=== PATIENT | male | born 1960 | race Caucasian/White ===

== ENCOUNTER 2017-08-26 11:49 | Inpatient (IN) | payer OTHER ==
[2017-08-26] MEDS: SOD CHLORIDE 0.9% 1,000 ML IV ×3 (12:18→14:21)
[2017-08-26] MEDS: HYDROmorphONE 0.5 MG/0.5 ML SYG IV ×2 (12:18→14:23)
[2017-08-26] MEDS: ONDANSETRON 4 MG INJ IV (12:18)
[2017-08-26 12:23] LABS: ADD MAN DIFF? NO
[2017-08-26 12:42] LABS: ALANINE AMINOTRANSFERASE 45 IU/L (13-69); ALBUMIN 3.8 g/dl (3.3-4.9); ALBUMIN/GLOBULIN RATIO 1.15; ALKALINE PHOSPHATASE 113 IU/L (42-121); ANION GAP 20 (8-16); ASPARTATE AMINO TRANSFERASE 47 IU/L (15-46); BILIRUBIN,INDIRECT 1.4 mg/dl (0-1.1); BILIRUBIN,TOTAL 1.4 mg/dl (0.2-1.3); BLOOD UREA NITROGEN 19 mg/dl (7-20); CARBON DIOXIDE 20 mmol/L (21-31); CHLORIDE 99 mmol/L (97-110); CREATININE 0.85 mg/dl (0.61-1.24); LIPASE 93 U/L (23-300); POTASSIUM 3.6 mmol/L (3.5-5.1); SODIUM 135 mmol/L (135-144); TOTAL PROTEIN 7.1 g/dl (6.1-8.1)
[2017-08-26 12:43] LABS: BASOPHILS % 0.1 % (0.0-2.0); HEMATOCRIT 43.1 % (42.0-52.0); HEMOGLOBIN 15.5 g/dl (14.0-18.0); LYMPHOCYTES # 1.6 10^3/ul (0.8-2.9); MEAN CORPUSCULAR HEMOGLOBIN 27.9 pg (29.0-33.0); MEAN CORPUSCULAR VOLUME 77.5 fl (82.0-101.0); MONOCYTE # 0.8 10^3/ul (0.3-0.9); MONOCYTES % 5.9 % (0.0-11.0); NEUTROPHIL # 11.7 10^3/ul (1.6-7.5); NEUTROPHILS % 82.3 % (39.0-77.0); PLATELET COUNT 214 10^3/UL (140-415); RED BLOOD COUNT 5.56 10^6/ul (4.70-6.10)
[2017-08-26 12:43] LABS: WHITE BLOOD COUNT 14.2 10^3/ul (4.8-10.8)
[2017-08-26 12:45] LABS: GLUCOSE 413 mg/dl (70-220)
[2017-08-26 12:57] LABS: TROPONIN-I < 0.012 ng/ml (0.00-0.12)
[2017-08-26 13:19] LABS: MODE NASAL CANNULA; MetHgb Venous 0.3 %; Sample Type Blood venous; Site VENOUS LINE; Venous COHb 1.4 %; Venous Fraction OxyHgb 79.1 %; Venous Oxygen Sat 80.5 mmHG (55.0-75.0); Venous Total Hemglobin 15.2 g/dl
[2017-08-26] MEDS ORDERED: GLUCOSE GEL 15 GRAM TUBE BUCCAL (13:30)
[2017-08-26] MEDS ORDERED: DEXTROSE 50% 50 ML SYRINGE IV (13:30)
[2017-08-26] MEDS ORDERED: GLUCOSE GEL 15 GRAM TUBE PO ×2 (13:30)
[2017-08-26] MEDS ORDERED: GLUCAGON 1 MG INJ IM (13:30)
[2017-08-26] MEDS ORDERED: ONDANSETRON 4 MG INJ IV ×2 (14:00→16:30)
[2017-08-26] MEDS ORDERED: ACETAMINOPHEN 325 MG TAB PO (14:00)
[2017-08-26 14:07] LABS: LACTIC ACID 1.4 mmol/L (0.5-2.0)
[2017-08-26] MEDS: INSULIN LISPRO 100 UNIT/ML VIAL SC (14:16)
[2017-08-26] MEDS: PIPER-TAZO 3.375 GM IV (PMX) 100 ML IVPB ×2 (14:22→17:59)
[2017-08-26 15:45] LABS: LACTIC ACID 1.3 mmol/L (0.5-2.0)
[2017-08-26] MEDS ORDERED: DOCUSATE SODIUM 100 MG CAP PO (16:30)
[2017-08-26] MEDS ORDERED: NACL 0.9% 3 ML SYG IV (16:30)
[2017-08-26] MEDS ORDERED: morphine 2 MG INJ IV (16:30)
[2017-08-26] MEDS ORDERED: ZOLPIDEM 5 MG TAB PO (16:30)
[2017-08-26] MEDS: morphine LIQ (10 MG/5 ML) CUP PO ×2 (17:00→21:23)
[2017-08-26] MEDS: NS + KCL 20 MEQ 1,000 ML IV (17:02)
[2017-08-26 17:38] LABS: LACTIC ACID 2.3 mmol/L (0.5-2.0)
[2017-08-26] MEDS: INSULIN ASPART [NOVOLOG] 3 ML PEN SC ×2 (17:58→20:14)
[2017-08-26] MEDS: INSULIN GLARGINE [LANtus] 3 ML PEN SC (20:13)
[2017-08-27] MEDS: PIPER-TAZO 3.375 GM IV (PMX) 100 ML IVPB ×5 (01:15→23:30)
[2017-08-27] MEDS: INSULIN ASPART [NOVOLOG] 3 ML PEN SC ×6 (01:25→20:37)
[2017-08-27] MEDS: ACCU-CHEK XX (02:00)
[2017-08-27] MEDS: NS + KCL 20 MEQ 1,000 ML IV ×3 (03:44→21:59)
[2017-08-27 06:07] LABS: ADD MAN DIFF? NO
[2017-08-27 06:19] LABS: WHITE BLOOD COUNT 8.3 10^3/ul (4.8-10.8)
[2017-08-27 06:19] LABS: BASOPHILS % 0.1 % (0.0-2.0); EOSINOPHILS % 0.2 % (0.0-7.0); HEMATOCRIT 37.9 % (42.0-52.0); LYMPHOCYTES # 0.8 10^3/ul (0.8-2.9); LYMPHOCYTES % 9.4 % (15.0-51.0); MEAN CORPUSCULAR HEMOGLOBIN 27.7 pg (29.0-33.0); MEAN CORPUSCULAR HGB CONC 34.3 g/dl (32.0-37.0); MEAN CORPUSCULAR VOLUME 80.6 fl (82.0-101.0); MEAN PLATELET VOLUME 11.4 fl (7.4-10.4); MONOCYTE # 0.8 10^3/ul (0.3-0.9); MONOCYTES % 9.3 % (0.0-11.0); NEUTROPHIL # 6.7 10^3/ul (1.6-7.5); NEUTROPHILS % 80.5 % (39.0-77.0); PLATELET COUNT 185 10^3/UL (140-415); RED CELL DISTRIBUTION WIDTH 13.2 % (11.5-14.5)
[2017-08-27 06:39] LABS: HEMOGLOBIN A1C 11.2 % (0-5.9)
[2017-08-27 06:40] LABS: ALBUMIN/GLOBULIN RATIO 1.11; ALKALINE PHOSPHATASE 104 IU/L (42-121); ANION GAP 11 (8-16); ASPARTATE AMINO TRANSFERASE 110 IU/L (15-46); BILIRUBIN,INDIRECT 0.7 mg/dl (0-1.1); BILIRUBIN,TOTAL 0.7 mg/dl (0.2-1.3); BLOOD UREA NITROGEN 22 mg/dl (7-20); CALCIUM 7.9 mg/dl (8.4-10.2); CARBON DIOXIDE 27 mmol/L (21-31); CHLORIDE 108 mmol/L (97-110); CHOLESTEROL 144 mg/dl (100-200); CREATININE 0.97 mg/dl (0.61-1.24); GLUCOSE 216 mg/dl (70-220); HDL CHOLESTEROL 36 mg/dl (28-71); LDL CHOLESTEROL,CALCULATED 82 mg/dl; PHOSPHORUS 2.8 mg/dl (2.5-4.9); POTASSIUM 3.4 mmol/L (3.5-5.1); SODIUM 143 mmol/L (135-144); TOTAL PROTEIN 5.7 g/dl (6.1-8.1); TRIGLYCERIDES 128 mg/dl (0-149)
[2017-08-27 06:41] LABS: ALANINE AMINOTRANSFERASE 99 IU/L (13-69)
[2017-08-27] MEDS: morphine LIQ (10 MG/5 ML) CUP PO ×4 (08:30→21:57)
[2017-08-27] MEDS: INSULIN GLARGINE [LANtus] 3 ML PEN SC (20:38)
[2017-08-28] MEDS: INSULIN ASPART [NOVOLOG] 3 ML PEN SC ×6 (01:27→20:45)
[2017-08-28] MEDS: ACCU-CHEK XX (01:29)
[2017-08-28] MEDS: morphine LIQ (10 MG/5 ML) CUP PO ×5 (01:48→22:05)
[2017-08-28] MEDS: NS + KCL 20 MEQ 1,000 ML IV ×2 (05:16→08:30)
[2017-08-28] MEDS: PIPER-TAZO 3.375 GM IV (PMX) 100 ML IVPB ×4 (05:26→23:49)
[2017-08-28 06:11] LABS: ADD MAN DIFF? NO; HAAIG REFLEX REFLEX FILED
[2017-08-28 06:19] LABS: WHITE BLOOD COUNT 6.5 10^3/ul (4.8-10.8)
[2017-08-28 06:19] LABS: BASOPHILS % 0.2 % (0.0-2.0); EOSINOPHILS # 0.1 10^3/ul (0.0-0.5); EOSINOPHILS % 1.5 % (0.0-7.0); HEMATOCRIT 37.2 % (42.0-52.0); HEMOGLOBIN 12.7 g/dl (14.0-18.0); LYMPHOCYTES % 14.7 % (15.0-51.0); MEAN CORPUSCULAR HEMOGLOBIN 28.2 pg (29.0-33.0); MEAN CORPUSCULAR HGB CONC 34.1 g/dl (32.0-37.0); MEAN CORPUSCULAR VOLUME 82.5 fl (82.0-101.0); MEAN PLATELET VOLUME 11.4 fl (7.4-10.4); MONOCYTE # 0.5 10^3/ul (0.3-0.9); MONOCYTES % 7.7 % (0.0-11.0); NEUTROPHIL # 4.9 10^3/ul (1.6-7.5); NEUTROPHILS % 75.6 % (39.0-77.0); PLATELET COUNT 179 10^3/UL (140-415); RED BLOOD COUNT 4.51 10^6/ul (4.70-6.10); RED CELL DISTRIBUTION WIDTH 13.5 % (11.5-14.5)
[2017-08-28 06:57] LABS: ALANINE AMINOTRANSFERASE 112 IU/L (13-69); ALBUMIN 2.7 g/dl (3.3-4.9); ALBUMIN/GLOBULIN RATIO 0.96; ALKALINE PHOSPHATASE 149 IU/L (42-121); ANION GAP 9 (8-16); ASPARTATE AMINO TRANSFERASE 62 IU/L (15-46); BILIRUBIN,INDIRECT 0.3 mg/dl (0-1.1); BILIRUBIN,TOTAL 0.3 mg/dl (0.2-1.3); BLOOD UREA NITROGEN 20 mg/dl (7-20); CALCIUM 7.7 mg/dl (8.4-10.2); CARBON DIOXIDE 26 mmol/L (21-31); CHLORIDE 112 mmol/L (97-110); GLUCOSE 155 mg/dl (70-220); POTASSIUM 3.3 mmol/L (3.5-5.1); SODIUM 144 mmol/L (135-144); TOTAL PROTEIN 5.5 g/dl (6.1-8.1)
[2017-08-28 08:52] LABS: HEPATITIS B SURFACE ANTIGEN NEGATIVE (NEGATIVE)
[2017-08-28 09:10] LABS: HEPATITIS B CORE ANTIBODY REACTIVE (NEGATIVE); HEPATITIS C VIRAL ANTIBODY NEGATIVE (NEGATIVE)
[2017-08-28] MEDS: POTASSIUM CHLORIDE 40 MEQ in SOD CHLORIDE 0.45% 1,000 ML IV (15:07)
[2017-08-28] MEDS: INSULIN GLARGINE [LANtus] 3 ML PEN SC (20:49)
[2017-08-29] MEDS: INSULIN ASPART [NOVOLOG] 3 ML PEN SC ×6 (00:56→20:06)
[2017-08-29] MEDS: ACCU-CHEK XX ×2 (00:56→19:39)
[2017-08-29] MEDS: POTASSIUM CHLORIDE 40 MEQ in SOD CHLORIDE 0.45% 1,000 ML IV ×4 (01:12→17:55)
[2017-08-29] MEDS: morphine LIQ (10 MG/5 ML) CUP PO ×5 (04:46→22:18)
[2017-08-29] MEDS: PIPER-TAZO 3.375 GM IV (PMX) 100 ML IVPB ×3 (05:38→17:12)
[2017-08-29 06:08] LABS: ADD MAN DIFF? NO
[2017-08-29 06:15] LABS: BASOPHILS % 0.3 % (0.0-2.0); EOSINOPHILS # 0.2 10^3/ul (0.0-0.5); EOSINOPHILS % 2.3 % (0.0-7.0); HEMATOCRIT 40.1 % (42.0-52.0); HEMOGLOBIN 13.5 g/dl (14.0-18.0); LYMPHOCYTES # 1.4 10^3/ul (0.8-2.9); LYMPHOCYTES % 19.3 % (15.0-51.0); MEAN CORPUSCULAR HEMOGLOBIN 27.7 pg (29.0-33.0); MEAN CORPUSCULAR HGB CONC 33.7 g/dl (32.0-37.0); MEAN CORPUSCULAR VOLUME 82.2 fl (82.0-101.0); MEAN PLATELET VOLUME 10.9 fl (7.4-10.4); MONOCYTE # 0.6 10^3/ul (0.3-0.9); MONOCYTES % 7.6 % (0.0-11.0); NEUTROPHIL # 5.1 10^3/ul (1.6-7.5); PLATELET COUNT 212 10^3/UL (140-415); RED BLOOD COUNT 4.88 10^6/ul (4.70-6.10); RED CELL DISTRIBUTION WIDTH 13.6 % (11.5-14.5)
[2017-08-29 06:15] LABS: WHITE BLOOD COUNT 7.3 10^3/ul (4.8-10.8)
[2017-08-29 06:35] LABS: ALANINE AMINOTRANSFERASE 83 IU/L (13-69); ALBUMIN/GLOBULIN RATIO 0.96; ALKALINE PHOSPHATASE 192 IU/L (42-121); ANION GAP 12 (8-16); ASPARTATE AMINO TRANSFERASE 25 IU/L (15-46); BILIRUBIN,INDIRECT 0.4 mg/dl (0-1.1); BILIRUBIN,TOTAL 0.4 mg/dl (0.2-1.3); BLOOD UREA NITROGEN 16 mg/dl (7-20); CALCIUM 7.8 mg/dl (8.4-10.2); CARBON DIOXIDE 28 mmol/L (21-31); CHLORIDE 110 mmol/L (97-110); CREATININE 0.79 mg/dl (0.61-1.24); GLUCOSE 105 mg/dl (70-220); MAGNESIUM 2.1 mg/dl (1.7-2.5); POTASSIUM 3.3 mmol/L (3.5-5.1); SODIUM 147 mmol/L (135-144); TOTAL PROTEIN 6.1 g/dl (6.1-8.1)
[2017-08-29] MEDS: HYDROCODONE/APAP (5/325) TAB PO (20:03)
[2017-08-29] MEDS: INSULIN GLARGINE [LANtus] 3 ML PEN SC (20:06)
[2017-08-30] MEDS: PIPER-TAZO 3.375 GM IV (PMX) 100 ML IVPB ×4 (00:38→18:00)
[2017-08-30] MEDS: DEXTROSE 50% 50 ML SYRINGE IV ×2 (00:40→06:17)
[2017-08-30] MEDS: INSULIN ASPART [NOVOLOG] 3 ML PEN SC ×6 (00:46→20:50)
[2017-08-30] MEDS: morphine LIQ (10 MG/5 ML) CUP PO ×3 (02:07→20:46)
[2017-08-30] MEDS: HYDROCODONE/APAP (5/325) TAB PO ×2 (03:09→20:47)
[2017-08-30 06:01] LABS: ADD MAN DIFF? NO
[2017-08-30 06:06] LABS: WHITE BLOOD COUNT 5.6 10^3/ul (4.8-10.8)
[2017-08-30 06:06] LABS: BASOPHILS % 0.4 % (0.0-2.0); EOSINOPHILS # 0.3 10^3/ul (0.0-0.5); EOSINOPHILS % 4.6 % (0.0-7.0); HEMATOCRIT 35.8 % (42.0-52.0); HEMOGLOBIN 12.5 g/dl (14.0-18.0); LYMPHOCYTES # 1.4 10^3/ul (0.8-2.9); MEAN CORPUSCULAR HEMOGLOBIN 28.5 pg (29.0-33.0); MEAN CORPUSCULAR HGB CONC 34.9 g/dl (32.0-37.0); MEAN CORPUSCULAR VOLUME 81.5 fl (82.0-101.0); MEAN PLATELET VOLUME 10.3 fl (7.4-10.4); MONOCYTE # 0.5 10^3/ul (0.3-0.9); MONOCYTES % 8.9 % (0.0-11.0); NEUTROPHIL # 3.5 10^3/ul (1.6-7.5); NEUTROPHILS % 61.7 % (39.0-77.0); PLATELET COUNT 219 10^3/UL (140-415); RED BLOOD COUNT 4.39 10^6/ul (4.70-6.10); RED CELL DISTRIBUTION WIDTH 13.4 % (11.5-14.5)
[2017-08-30] MEDS: POTASSIUM CHLORIDE 40 MEQ in SOD CHLORIDE 0.45% 1,000 ML IV (06:17)
[2017-08-30 06:39] LABS: MAGNESIUM 1.9 mg/dl (1.7-2.5)
[2017-08-30 06:45] LABS: ALANINE AMINOTRANSFERASE 56 IU/L (13-69); ALBUMIN 2.5 g/dl (3.3-4.9); ALKALINE PHOSPHATASE 163 IU/L (42-121); ANION GAP 12 (8-16); ASPARTATE AMINO TRANSFERASE 22 IU/L (15-46); BILIRUBIN,INDIRECT 0.4 mg/dl (0-1.1); BILIRUBIN,TOTAL 0.4 mg/dl (0.2-1.3); BLOOD UREA NITROGEN 12 mg/dl (7-20); CALCIUM 7.8 mg/dl (8.4-10.2); CARBON DIOXIDE 26 mmol/L (21-31); CHLORIDE 109 mmol/L (97-110); CREATININE 0.77 mg/dl (0.61-1.24); GLUCOSE 65 mg/dl (70-220); POTASSIUM 3.6 mmol/L (3.5-5.1); SODIUM 143 mmol/L (135-144); TOTAL PROTEIN 5.6 g/dl (6.1-8.1)
[2017-08-30 11:01] LABS: ALANINE AMINOTRANSFERASE 57 IU/L (13-69); ALBUMIN 2.6 g/dl (3.3-4.9); ALKALINE PHOSPHATASE 161 IU/L (42-121); ASPARTATE AMINO TRANSFERASE 24 IU/L (15-46); BILIRUBIN,INDIRECT 0.3 mg/dl (0-1.1); BILIRUBIN,TOTAL 0.3 mg/dl (0.2-1.3); LIPASE 96 U/L (23-300); TOTAL PROTEIN 5.4 g/dl (6.1-8.1)
[2017-08-30] MEDS: ACETAMINOPHEN 325 MG TAB PO (11:44)
[2017-08-30 11:46] LABS: AMYLASE 49 U/L (11-123)
[2017-08-30] MEDS: D5W + KCL 20 MEQ 1,000 ML IV ×2 (13:13→20:46)
[2017-08-30] MEDS ORDERED: GLYCOPYRROLATE 0.4 MG INJ (17:06)
[2017-08-30] MEDS ORDERED: FENTAnyl 50 MCG/ML VIAL (17:06)
[2017-08-30] MEDS ORDERED: ROCURONIUM 50 MG INJ (17:06)
[2017-08-30] MEDS ORDERED: DEXAMETHASONE 4 MG/ML 1 ML INJ (17:06)
[2017-08-30] MEDS ORDERED: PROPOFOL 20 ML (17:06)
[2017-08-30] MEDS ORDERED: NEOSTIGMINE 3 MG/3 ML SYRINGE (17:06)
[2017-08-30] MEDS ORDERED: CEFAZOLIN 1 GM INJ (17:06)
[2017-08-30] MEDS ORDERED: ONDANSETRON 4 MG INJ (17:06)
[2017-08-30] MEDS: LIDOCAINE 1%/EPI 30 ML INJ (17:30)
[2017-08-30] MEDS: BUPIVACAINE 0.25% (MPF) 30 ML INJ (17:30)
[2017-08-30] MEDS ORDERED: hydrALAzine 20 MG INJ IV (18:00)
[2017-08-30] MEDS ORDERED: MIDAZOLAM 1 MG/ML 2 ML INJ IV (18:00)
[2017-08-30] MEDS ORDERED: MEPERIDINE 25 MG INJ IV (18:00)
[2017-08-30] MEDS ORDERED: HYDROmorphONE (0.2 MG/ML) 10ML SYG IV ×2 (18:00)
[2017-08-30] MEDS ORDERED: EPHEDrine SULFATE 50 MG/5 ML SYG IV (18:00)
[2017-08-30] MEDS ORDERED: DIPHENHYDRAMINE 50 MG INJ IV (18:00)
[2017-08-30] MEDS ORDERED: IPRATROPIUM (NEB) 0.5 MG/2.5 ML AMP HHN (18:00)
[2017-08-30] MEDS ORDERED: FENTAnyl 50 MCG/ML VIAL IV ×3 (18:00)
[2017-08-30] MEDS ORDERED: ALBUTEROL 0.083% (NEB) 2.5 MG/3 ML AMP HHN (18:00)
[2017-08-30] MEDS ORDERED: OXYCODONE/ACETAMINOPHEN (5/325) TAB PO ×2 (18:00)
[2017-08-30] MEDS ORDERED: TRIMETHOBENZAMIDE 100 MG/ML VIAL IM (18:00)
[2017-08-30] MEDS ORDERED: KETOROLAC 30 MG INJ (18:21)
[2017-08-30] MEDS: HYDROmorphONE (0.2 MG/ML) 10ML SYG IV ×2 (19:01→19:09)
[2017-08-30] MEDS: ONDANSETRON 4 MG INJ IV (19:02)
[2017-08-30] MEDS: LABETALOL HCL 20MG INJ IV ×2 (19:15→19:30)
[2017-08-30] MEDS: hydrALAzine 20 MG INJ IV (20:47)
[2017-08-30] MEDS: INSULIN GLARGINE [LANtus] 3 ML PEN SC (21:01)
[2017-08-31] MEDS: PIPER-TAZO 3.375 GM IV (PMX) 100 ML IVPB ×3 (00:34→12:18)
[2017-08-31] MEDS: ACCU-CHEK XX (02:00)
[2017-08-31] MEDS: morphine LIQ (10 MG/5 ML) CUP PO ×2 (02:05→10:01)
[2017-08-31] MEDS: D5W + KCL 20 MEQ 1,000 ML IV (06:18)
[2017-08-31] MEDS: HYDROCODONE/APAP (5/325) TAB PO (06:19)
[2017-08-31] MEDS: INSULIN ASPART [NOVOLOG] 3 ML PEN SC ×2 (08:11→12:19)
== END 2017-08-31 16:25 | disposition home or self-care (01) | DRG 854 ==
LOC: E/R 11:49 → MS2 13:39
PROC: 0FT44ZZ Resection of Gallbladder, Percutaneous Endoscopic Approach (ICD-10-PCS; principal; 2017-08-30 15:00)
PROC: 0FB04ZX Excision of Liver, Percutaneous Endoscopic Approach, Diagnostic (ICD-10-PCS; 2017-08-30 15:00)
DX: A41.9 Sepsis, unspecified organism (principal); K80.00 Calculus of gallbladder with acute cholecystitis without obstruction; E11.65 Type 2 diabetes mellitus with hyperglycemia; E66.9 Obesity, unspecified; Z68.31 Body mass index [BMI] 31.0-31.9, adult; G89.29 Other chronic pain; I10 Essential (primary) hypertension
CPT/HCPCS: 36415; 71045; 74176; 74181; 76705; 80053; 80061; 80076; 82150; 82803; 82962; 83036; 83605; 83690; 83735; 84100; 84484; 85025; 86704; 86709; 86803; 87040; 87045; 87075; 87340; 88304; 88307; 88313; 93005; 96365; 96372; 96375; 96376; 99291-25

== ENCOUNTER 2017-09-06 14:26 | Outpatient (CLI) | payer OTHER | END 2017-09-06 16:02 | disposition home or self-care (01) | LOC: DCC 14:26 | DX: Z09 Encounter for follow-up examination after completed treatment for conditions other than malignant neoplasm (principal); R10.9 Unspecified abdominal pain; E11.8 Type 2 diabetes mellitus with unspecified complications; Z79.84 Long term (current) use of oral hypoglycemic drugs | CPT/HCPCS: G0463 ==

== ENCOUNTER 2017-09-15 07:34 | Inpatient (IN) | payer OTHER ==
[2017-09-15 09:33] LABS: ADD MAN DIFF? NO
[2017-09-15] MEDS: SOD CHLORIDE 0.9% 1,000 ML IV ×3 (09:33→23:24)
[2017-09-15] MEDS: PIPER-TAZO 3.375 GM IV (PMX) 100 ML IVPB ×3 (09:33→21:39)
[2017-09-15] MEDS: IBUPROFEN 600 MG TAB PO (09:33)
[2017-09-15] MEDS: morphine 4 MG/ML VIAL IV (09:33)
[2017-09-15] MEDS: ONDANSETRON 4 MG INJ IV (09:33)
[2017-09-15 09:38] LABS: BASOPHILS % 0.2 % (0.0-2.0); EOSINOPHILS # 0.2 10^3/ul (0.0-0.5); EOSINOPHILS % 2.1 % (0.0-7.0); HEMATOCRIT 34.1 % (42.0-52.0); HEMOGLOBIN 11.7 g/dl (14.0-18.0); LYMPHOCYTES # 1.2 10^3/ul (0.8-2.9); LYMPHOCYTES % 14.1 % (15.0-51.0); MEAN CORPUSCULAR HEMOGLOBIN 28.1 pg (29.0-33.0); MEAN CORPUSCULAR HGB CONC 34.3 g/dl (32.0-37.0); MEAN PLATELET VOLUME 10.4 fl (7.4-10.4); MONOCYTE # 0.6 10^3/ul (0.3-0.9); NEUTROPHIL # 6.5 10^3/ul (1.6-7.5); NEUTROPHILS % 75.7 % (39.0-77.0); PLATELET COUNT 341 10^3/UL (140-415); RED BLOOD COUNT 4.16 10^6/ul (4.70-6.10); RED CELL DISTRIBUTION WIDTH 12.4 % (11.5-14.5)
[2017-09-15 09:38] LABS: WHITE BLOOD COUNT 8.5 10^3/ul (4.8-10.8)
[2017-09-15 09:54] LABS: INR 1.01; PROTIME 13.4 Sec (11.9-14.9)
[2017-09-15 09:55] LABS: PARTIAL THROMBOPLASTIN TIME 49.7 Sec (25.0-35.0)
[2017-09-15 10:02] LABS: ALANINE AMINOTRANSFERASE 72 IU/L (13-69); ALBUMIN 2.9 g/dl (3.3-4.9); ALBUMIN/GLOBULIN RATIO 0.93; ALKALINE PHOSPHATASE 386 IU/L (42-121); ANION GAP 18 (8-16); ASPARTATE AMINO TRANSFERASE 25 IU/L (15-46); BILIRUBIN,INDIRECT 0.3 mg/dl (0-1.1); BILIRUBIN,TOTAL 0.3 mg/dl (0.2-1.3); BLOOD UREA NITROGEN 11 mg/dl (7-20); CALCIUM 8.8 mg/dl (8.4-10.2); CARBON DIOXIDE 26 mmol/L (21-31); CHLORIDE 100 mmol/L (97-110); CREATININE 0.76 mg/dl (0.61-1.24); GLUCOSE 287 mg/dl (70-220); LIPASE 397 U/L (23-300); POTASSIUM 4.6 mmol/L (3.5-5.1); SODIUM 139 mmol/L (135-144)
[2017-09-15] MEDS: SOD CHLORIDE 0.9% 100 ML (10:44)
[2017-09-15] MEDS: IOHEXOL 300MG/ML 150 ML BTL (10:45)
[2017-09-15] MEDS ORDERED: DEXTROSE 50% 50 ML SYRINGE IV ×2 (13:30)
[2017-09-15] MEDS ORDERED: NACL 0.9% 3 ML SYG IV (13:30)
[2017-09-15] MEDS ORDERED: GLUCOSE GEL 15 GRAM TUBE BUCCAL (13:30)
[2017-09-15] MEDS ORDERED: GLUCAGON 1 MG INJ IM (13:30)
[2017-09-15] MEDS ORDERED: ACETAMINOPHEN 325 MG TAB PO (13:30)
[2017-09-15] MEDS ORDERED: GLUCOSE GEL 15 GRAM TUBE PO ×2 (13:30)
[2017-09-15] MEDS: INSULIN ASPART [NOVOLOG] 3 ML PEN SC ×2 (17:36→20:58)
[2017-09-15] MEDS: HYDROCODONE/APAP (5/325) TAB PO (19:13)
[2017-09-16] MEDS: morphine 2 MG INJ IV ×3 (00:31→23:13)
[2017-09-16] MEDS: PIPER-TAZO 3.375 GM IV (PMX) 100 ML IVPB ×3 (05:46→21:39)
[2017-09-16] MEDS: PANTOPRAZOLE 40 MG INJ IV (05:46)
[2017-09-16 06:06] LABS: ADD MAN DIFF? NO
[2017-09-16 06:10] LABS: BASOPHILS % 0.3 % (0.0-2.0); EOSINOPHILS # 0.3 10^3/ul (0.0-0.5); EOSINOPHILS % 4.7 % (0.0-7.0); HEMATOCRIT 29.1 % (42.0-52.0); HEMOGLOBIN 9.5 g/dl (14.0-18.0); LYMPHOCYTES # 1.2 10^3/ul (0.8-2.9); LYMPHOCYTES % 18.6 % (15.0-51.0); MEAN CORPUSCULAR HEMOGLOBIN 27.6 pg (29.0-33.0); MEAN CORPUSCULAR HGB CONC 32.6 g/dl (32.0-37.0); MEAN CORPUSCULAR VOLUME 84.6 fl (82.0-101.0); MEAN PLATELET VOLUME 10.6 fl (7.4-10.4); MONOCYTE # 0.6 10^3/ul (0.3-0.9); MONOCYTES % 8.5 % (0.0-11.0); NEUTROPHIL # 4.4 10^3/ul (1.6-7.5); NEUTROPHILS % 66.8 % (39.0-77.0); PLATELET COUNT 315 10^3/UL (140-415); RED BLOOD COUNT 3.44 10^6/ul (4.70-6.10); RED CELL DISTRIBUTION WIDTH 12.6 % (11.5-14.5)
[2017-09-16 06:10] LABS: WHITE BLOOD COUNT 6.6 10^3/ul (4.8-10.8)
[2017-09-16 06:44] LABS: ALANINE AMINOTRANSFERASE 63 IU/L (13-69); ALBUMIN 2.5 g/dl (3.3-4.9); ALKALINE PHOSPHATASE 311 IU/L (42-121); ANION GAP 12 (8-16); ASPARTATE AMINO TRANSFERASE 28 IU/L (15-46); BILIRUBIN,INDIRECT 0.1 mg/dl (0-1.1); BILIRUBIN,TOTAL 0.1 mg/dl (0.2-1.3); BLOOD UREA NITROGEN 11 mg/dl (7-20); CALCIUM 8.2 mg/dl (8.4-10.2); CARBON DIOXIDE 29 mmol/L (21-31); CHLORIDE 103 mmol/L (97-110); CREATININE 0.89 mg/dl (0.61-1.24); GLUCOSE 230 mg/dl (70-220); MAGNESIUM 1.9 mg/dl (1.7-2.5); POTASSIUM 4.7 mmol/L (3.5-5.1); SODIUM 139 mmol/L (135-144); TOTAL PROTEIN 5.6 g/dl (6.1-8.1)
[2017-09-16] MEDS: HYDROCODONE/APAP (5/325) TAB PO ×2 (07:55→17:35)
[2017-09-16] MEDS: INSULIN ASPART [NOVOLOG] 3 ML PEN SC ×4 (08:00→20:56)
[2017-09-16] MEDS: SOD CHLORIDE 0.9% 1,000 ML IV ×2 (10:11→21:39)
[2017-09-16 12:24] LABS: LIPASE 197 U/L (23-300)
[2017-09-16] MEDS ORDERED: VANCOMYCIN IV PER PHARMACY XX (14:30)
[2017-09-16] MEDS: VANCOMYCIN 2 GM in SOD CHLORIDE 0.9% 500 ML IVPB (16:07)
[2017-09-16] MEDS: hydrALAzine 20 MG INJ IV (20:20)
[2017-09-16] MEDS: ONDANSETRON 4 MG INJ IV (23:12)
[2017-09-17] MEDS: VANCOMYCIN 1.5 GM in SOD CHLORIDE 0.9% 250 ML IVPB (04:23)
[2017-09-17] MEDS: SOD CHLORIDE 0.9% 1,000 ML IV (05:38)
[2017-09-17] MEDS: PANTOPRAZOLE 40 MG INJ IV (05:40)
[2017-09-17] MEDS: PIPER-TAZO 3.375 GM IV (PMX) 100 ML IVPB (05:40)
[2017-09-17] MEDS: morphine 2 MG INJ IV ×2 (07:44→16:05)
[2017-09-17] MEDS: INSULIN ASPART [NOVOLOG] 3 ML PEN SC ×4 (07:51→21:00)
[2017-09-17] MEDS: HYDROCODONE/APAP (5/325) TAB PO ×2 (11:56→21:02)
[2017-09-17] MEDS: CEFTRIAXONE 1 GM/50 ML (PMX) 50 ML IVPB (11:58)
[2017-09-18] MEDS: HYDROCODONE/APAP (5/325) TAB PO ×2 (06:31→15:28)
[2017-09-18] MEDS: PANTOPRAZOLE 40 MG INJ IV (06:31)
[2017-09-18] MEDS: INSULIN ASPART [NOVOLOG] 3 ML PEN SC ×4 (08:43→21:00)
[2017-09-18] MEDS: CEFTRIAXONE 1 GM/50 ML (PMX) 50 ML IVPB (11:24)
[2017-09-18] MEDS: POLYETHYLENE GLYCOL 17 GM PACKET PO (12:09)
[2017-09-18] MEDS: DOCUSATE SODIUM 100 MG CAP PO ×2 (12:09→21:46)
[2017-09-18] MEDS: hydrALAzine 20 MG INJ IV (15:24)
[2017-09-19] MEDS: HYDROCODONE/APAP (5/325) TAB PO (03:51)
[2017-09-19] MEDS: PANTOPRAZOLE 40 MG INJ IV (05:40)
[2017-09-19] MEDS: INSULIN ASPART [NOVOLOG] 3 ML PEN SC ×4 (08:07→20:27)
[2017-09-19] MEDS: CEFTRIAXONE 1 GM/50 ML (PMX) 50 ML IVPB (11:52)
[2017-09-19] MEDS: hydrALAzine 20 MG INJ IV (20:28)
[2017-09-20] MEDS: PANTOPRAZOLE 40 MG INJ IV (05:29)
[2017-09-20] MEDS: INSULIN ASPART [NOVOLOG] 3 ML PEN SC ×4 (08:04→20:44)
[2017-09-20] MEDS: CEFTRIAXONE 2 GM/50 ML (PMX) 50 ML IVPB (12:29)
[2017-09-20] MEDS: AMLODIPINE 5 MG TAB PO ×2 (12:30→15:59)
[2017-09-20] MEDS: hydrALAzine 20 MG INJ IV (14:46)
[2017-09-20] MEDS: TRIMETHOPRIM/SULFAMETHOX (DS) TAB PO (20:40)
[2017-09-21] MEDS: INSULIN ASPART [NOVOLOG] 3 ML PEN SC ×4 (01:49→17:28)
[2017-09-21] MEDS: LEVOFLOXACIN 500 MG TAB PO (05:25)
[2017-09-21] MEDS: PANTOPRAZOLE (EC) 40 MG TAB PO (05:25)
[2017-09-21 05:43] LABS: ADD MAN DIFF? NO
[2017-09-21 05:48] LABS: WHITE BLOOD COUNT 5.5 10^3/ul (4.8-10.8)
[2017-09-21 05:48] LABS: BASOPHILS % 0.4 % (0.0-2.0); EOSINOPHILS # 0.2 10^3/ul (0.0-0.5); EOSINOPHILS % 4.2 % (0.0-7.0); HEMATOCRIT 31.4 % (42.0-52.0); HEMOGLOBIN 10.3 g/dl (14.0-18.0); LYMPHOCYTES # 1.4 10^3/ul (0.8-2.9); LYMPHOCYTES % 24.6 % (15.0-51.0); MEAN CORPUSCULAR HEMOGLOBIN 27.4 pg (29.0-33.0); MEAN CORPUSCULAR HGB CONC 32.8 g/dl (32.0-37.0); MEAN CORPUSCULAR VOLUME 83.5 fl (82.0-101.0); MEAN PLATELET VOLUME 9.7 fl (7.4-10.4); MONOCYTE # 0.5 10^3/ul (0.3-0.9); MONOCYTES % 8.6 % (0.0-11.0); NEUTROPHIL # 3.3 10^3/ul (1.6-7.5); NEUTROPHILS % 60.7 % (39.0-77.0); PLATELET COUNT 360 10^3/UL (140-415); RED BLOOD COUNT 3.76 10^6/ul (4.70-6.10); RED CELL DISTRIBUTION WIDTH 12.8 % (11.5-14.5)
[2017-09-21 06:18] LABS: ANION GAP 11 (8-16); BLOOD UREA NITROGEN 14 mg/dl (7-20); CALCIUM 8.8 mg/dl (8.4-10.2); CARBON DIOXIDE 30 mmol/L (21-31); CHLORIDE 105 mmol/L (97-110); CREATININE 0.82 mg/dl (0.61-1.24); GLUCOSE 189 mg/dl (70-220); MAGNESIUM 1.9 mg/dl (1.7-2.5); POTASSIUM 3.8 mmol/L (3.5-5.1); SODIUM 142 mmol/L (135-144)
[2017-09-21 07:23] LABS: HEMOGLOBIN A1C 9.3 % (0-5.9)
[2017-09-21] MEDS: TRIMETHOPRIM/SULFAMETHOX (DS) TAB PO (08:23)
[2017-09-21] MEDS: AMLODIPINE 10 MG TAB PO (08:40)
== END 2017-09-21 18:20 | disposition home health service (06) | DRG 863 ==
LOC: MS2 09-18 06:07 → E/R 07:34 → MS3 11:55
DX: T81.4XXA Infection following a procedure, initial encounter (principal); T85.79XA Infection and inflammatory reaction due to other internal prosthetic devices, implants and grafts, initial encounter; F11.20 Opioid dependence, uncomplicated; B95.61 Methicillin susceptible Staphylococcus aureus infection as the cause of diseases classified elsewhere; Z16.39 Resistance to other specified antimicrobial drug; Z90.49 Acquired absence of other specified parts of digestive tract; D64.9 Anemia, unspecified; K76.0 Fatty (change of) liver, not elsewhere classified; E66.9 Obesity, unspecified; Z68.30 Body mass index [BMI] 30.0-30.9, adult; G89.4 Chronic pain syndrome; Z96.661 Presence of right artificial ankle joint; N20.0 Calculus of kidney; E11.65 Type 2 diabetes mellitus with hyperglycemia
CPT/HCPCS: 36415; 74177; 80048; 80053; 82962; 83036; 83690; 83735; 84100; 85025; 85610; 85730; 87070; 96374; 96375; 97161; 99285-25

== ENCOUNTER 2017-09-24 14:18 | Outpatient (CLI) | payer OTHER | END 2017-09-24 15:56 | disposition home or self-care (01) | LOC: DCC 14:18 | DX: R10.9 Unspecified abdominal pain (principal); E11.8 Type 2 diabetes mellitus with unspecified complications; I10 Essential (primary) hypertension; Z79.84 Long term (current) use of oral hypoglycemic drugs | CPT/HCPCS: 82962 ==

== ENCOUNTER 2017-10-07 14:31 | Outpatient (CLI) | payer OTHER | END 2017-10-08 14:11 | disposition home or self-care (01) | LOC: DCC 14:31 | DX: R10.9 Unspecified abdominal pain (principal); I10 Essential (primary) hypertension; E11.8 Type 2 diabetes mellitus with unspecified complications | CPT/HCPCS: G0463 ==